=== PATIENT | female | born 1950 | race Caucasian/White ===

== ENCOUNTER 2024-08-18 21:24 | Emergency (ER) | payer MEDICARE, MEDICAID ==
[2024-08-18 23:37] LABS: BASOPHILS % 0.8 % (0.0-2.0); EOSINOPHILS % 2.3 % (0.0-5.0); HEMATOCRIT. 37.3 % (36.0-48.0); HEMOGLOBIN. 12.8 g/dL (12.0-16.0); LYMPHOCYTES % 27.3 % (20.0-50.0); MEAN PLATELET VOLUME 7.2 fl (7.4-10.4); MONOCYTES % 9.9 % (2.0-8.0); NEUTROPHILS % 59.7 % (40.0-76.0); PLATELET 228 x1000/uL (130-400); RED BLOOD CELL COUNT 4.16 mill/uL (4.2-5.4); RED CELL DISTRIBUTION WIDTH 12.8 % (11.6-14.6)
[2024-08-18 23:56] LABS: CREATININE 0.9 mg/dL (0.6-1.0); UREA NITROGEN BLOOD 21 mg/dL (9-23)
[2024-08-19] MEDS: CEFTRIAXONE SODIUM 1G VIAL IM ONE (00:18)
[2024-08-19] MEDS ORDERED: CEPH500C2 MT (00:53)
[2024-08-19 01:04] VITALS: BP 152/73; PULSE 93; RESP 16; O2SAT 100
== END 2024-08-19 02:29 | disposition home or self-care (01) ==
LOC: ER 21:24
DX: S70.11XA Contusion of right thigh, initial encounter (principal); I87.1 Compression of vein; L03.115 Cellulitis of right lower limb; Z79.899 Other long term (current) drug therapy; V89.2XXA Person injured in unspecified motor-vehicle accident, traffic, initial encounter; Y93.89 Activity, other specified; Y92.89 Other specified places as the place of occurrence of the external cause; Y99.8 Other external cause status
CPT/HCPCS: 99285; 93971; 80048; 85025; 85379; 36415; 73560; 96372; J0696

== ENCOUNTER 2024-09-05 22:56 | Inpatient (IN) | payer MEDICARE, MEDICAID ==
[~2024-09-05] VITALS: Ht 165.1 cm; Wt 75.9 kg
[~2024-09-05 22:56] MED LIST: CEPH500C2 MT
[2024-09-06 00:06] LABS: BASOPHILS % 0.7 % (0.0-2.0); EOSINOPHILS % 1.6 % (0.0-5.0); HEMATOCRIT. 39.5 % (36.0-48.0); HEMOGLOBIN. 13.4 g/dL (12.0-16.0); LYMPHOCYTES % 25.9 % (20.0-50.0); MEAN PLATELET VOLUME 7.3 fl (7.4-10.4); MONOCYTES % 8.8 % (2.0-8.0); NEUTROPHILS % 63.0 % (40.0-76.0); PLATELET 235 x1000/uL (130-400); RED BLOOD CELL COUNT 4.43 mill/uL (4.2-5.4); RED CELL DISTRIBUTION WIDTH 12.6 % (11.6-14.6)
[2024-09-06 00:13] LABS: INR 1.0
[2024-09-06 00:17] LABS: CREATININE 0.9 mg/dL (0.6-1.0)
[2024-09-06 00:18] LABS: UREA NITROGEN BLOOD 17 mg/dL (9-23)
[2024-09-06 00:19] LABS: ASPARTATE AMINOTRANSFERASE 26 IU/L (<34); TROPONIN I HIGH SENSITIVITY 4 ng/L (3.0-34)
[2024-09-06 00:20] LABS: BILIRUBIN DIRECT 0.2 mg/dL (<=3.0); BILIRUBIN TOTAL 0.8 mg/dL (0.1-1.0); PROTEIN TOTAL 6.9 g/dL (6.0-8.3)
[2024-09-06 01:00] LABS: CLARITY URINE CLEAR (CLEAR); COLOR URINE YELLOW (YELLOW); GLUCOSE URINE NEGATIVE (NEGATIVE); KETONES URINE NEGATIVE (NEGATIVE); LEUKOCYTE ESTERASE URINE 2+ (NEGATIVE); NITRITE URINE NEGATIVE (NEGATIVE); OCCULT BLOOD URINE NEGATIVE (NEGATIVE); PH URINE 6.0 (4.5-8.0); PROTEIN URINE NEGATIVE (NEGATIVE); SPECIFIC GRAVITY URINE 1.009 (1.005-1.030); UROBILINOGEN URINE 0.2 E.U./dL (0.2-1.0)
[2024-09-06 01:14] LABS: BACTERIA URINE NONE SEEN; RBC URINE NONE SEEN /hpf (0-2); SQUAMOUS EPITHELIAL CELL URINE NONE SEEN /lpf (RARE/1+)
[2024-09-06] MEDS: CEFTRIAXONE 1GM/50ML 50 ML IV NR (03:00)
[2024-09-06 04:00] VITALS: BP 140/83; PULSE 106; RESP 18; TEMP 36.4; TEMP 36.418; O2SAT 100
[2024-09-06] MEDS ORDERED: CHOL400D7 PO ×2 (05:34)
[2024-09-06] MEDS ORDERED: APIX2.5T PO (05:34)
[2024-09-06] MEDS ORDERED: PANT20TA17 PO ×2 (05:34)
[2024-09-06] MEDS ORDERED: METO-385 MT (05:34)
[2024-09-06] MEDS ORDERED: HYDR25TA MT (05:34)
[2024-09-06] MEDS ORDERED: CLOP75TA33 MT (05:34)
[2024-09-06] MEDS ORDERED: METO-385 PO (05:34)
[2024-09-06] MEDS ORDERED: SOTA80TA MT (05:34)
[2024-09-06] MEDS ORDERED: VITA250012 MT (05:34)
[2024-09-06] MEDS ORDERED: CLOP75TA33 PO (05:34)
[2024-09-06] MEDS ORDERED: APIX2.5T MT (05:34)
[2024-09-06] MEDS ORDERED: SOTA80TA PO (05:34)
[2024-09-06] MEDS ORDERED: TELM1TAB MT (05:34)
[2024-09-06] MEDS ORDERED: *PATIENT'S OWN MEDICATION STORAGE XX SCH (06:15)
[2024-09-06] MEDS ORDERED: HYDROCODONE/ACETAMINOPHEN 5/325MG TABLET PO PRN (06:30)
[2024-09-06] MEDS ORDERED: NON FORMULARY MED XX SCH (06:30)
[2024-09-06 08:00] VITALS: BP 134/83; PULSE 75; RESP 18; TEMP 36.9; O2SAT 100
[2024-09-06] MEDS: PANTOPRAZOLE 40MG DR TABLET PO SCH (10:36)
[2024-09-06] MEDS: APIXABAN 5 MG TABLET PO SCH (10:36)
[2024-09-06] MEDS: METOPROLOL SUCCINATE 50MG ER TABLET PO SCH (10:39)
[2024-09-06] MEDS: LOSARTAN 100 MG TABLET PO SCH (10:40)
[2024-09-06] MEDS: CLOPIDOGREL 75MG TABLET PO SCH (10:41)
[2024-09-06] MEDS: SOTALOL HCL 80MG TABLET PO SCH (10:41)
[2024-09-06] MEDS: HYDROCHLOROTHIAZIDE 25MG TABLET PO SCH (10:41)
[2024-09-06 12:00] VITALS: BP 126/83; PULSE 98; RESP 18; TEMP 36.8; O2SAT 98
[2024-09-06 13:30] LABS: BASOPHILS % 0.6 % (0.0-2.0); EOSINOPHILS % 1.0 % (0.0-5.0); HEMATOCRIT. 40.1 % (36.0-48.0); HEMOGLOBIN. 13.6 g/dL (12.0-16.0); LYMPHOCYTES % 24.7 % (20.0-50.0); MEAN PLATELET VOLUME 7.2 fl (7.4-10.4); MONOCYTES % 9.8 % (2.0-8.0); NEUTROPHILS % 63.9 % (40.0-76.0); PLATELET 238 x1000/uL (130-400); RED BLOOD CELL COUNT 4.49 mill/uL (4.2-5.4); RED CELL DISTRIBUTION WIDTH 12.5 % (11.6-14.6)
[2024-09-06 14:08] LABS: CREATININE 0.8 mg/dL (0.6-1.0); UREA NITROGEN BLOOD 13 mg/dL (9-23)
[2024-09-06 14:10] LABS: TROPONIN I HIGH SENSITIVITY < 4 ng/L (3.0-34)
[2024-09-06 14:47] LABS: HEPATITIS C AB NON REACTIVE (Neg) (Negative)
[2024-09-06 16:00] VITALS: BP 107/65; PULSE 63; RESP 19; TEMP 36.1; O2SAT 94
[2024-09-06 20:00] VITALS: BP 112/70; RESP 19; TEMP 36.3; O2SAT 96
[2024-09-07] VITALS: BP 121/71; PULSE 76; RESP 19; TEMP 36.2; O2SAT 97
[2024-09-07] MEDS: CEFTRIAXONE 1GM/50ML 50 ML IV SCH (03:28)
[2024-09-07 07:11] LABS: CREATININE 0.8 mg/dL (0.6-1.0); UREA NITROGEN BLOOD 16 mg/dL (9-23)
[2024-09-07 07:12] LABS: TROPONIN I HIGH SENSITIVITY < 4 ng/L (3.0-34)
[2024-09-07 08:00] VITALS: BP 127/71; PULSE 79; RESP 16; TEMP 36.4; O2SAT 100
[2024-09-07 12:00] VITALS: BP 134/73; PULSE 101; RESP 16; TEMP 36.2; O2SAT 100
[2024-09-07 16:00] VITALS: BP 142/73; PULSE 97; RESP 16; TEMP 36.6; O2SAT 100
[2024-09-07] MEDS ORDERED: NALOXONE HCL 0.4MG/ML VIAL IV PRN (16:30)
[2024-09-07 20:00] VITALS: BP 141/87; PULSE 103; RESP 18; TEMP 36.1; O2SAT 100
[2024-09-08] VITALS: BP 125/73; PULSE 89; RESP 18; TEMP 35.6; O2SAT 100
[2024-09-08 08:00] VITALS: BP 139/91; PULSE 86; RESP 18; TEMP 36.1; O2SAT 98
[2024-09-08] MEDS ORDERED: APIX5TAB MT (15:03)
[2024-09-08] MEDS ORDERED: SOTA80TA MT (15:03)
[2024-09-08] MEDS ORDERED: CLOP-31 MT (15:03)
[2024-09-08] MEDS ORDERED: METO-385 MT (15:03)
[2024-09-08] MEDS ORDERED: LOSA100T33 MT (15:03)
[2024-09-08] MEDS ORDERED: HYDR25TA MT (15:03)
[2024-09-08 16:00] VITALS: BP 141/73; PULSE 83; RESP 18; TEMP 35.9; O2SAT 100
[2024-09-08 20:00] VITALS: BP 124/77; PULSE 95; RESP 18; TEMP 36.1; O2SAT 100
[2024-09-09] VITALS: BP 114/72; PULSE 83; RESP 18; TEMP 36.2; O2SAT 100
[2024-09-09 04:00] VITALS: BP 105/63; PULSE 76; RESP 18; TEMP 35.8; O2SAT 100
[2024-09-09 08:00] VITALS: BP 110/71; PULSE 76; RESP 18; TEMP 35.7; O2SAT 100
[2024-09-09 09:31] VITALS: BP 110/71; PULSE 76; TEMP 96.2; O2SAT 100
[2024-09-09 12:00] VITALS: BP 120/81; PULSE 89; RESP 18; TEMP 36; O2SAT 98
== END 2024-09-09 12:00 | disposition home or self-care (01) | DRG 201 ==
LOC: ER 22:56 → 6WST 09-06 01:51 → EDBEDREQDT 09-06 02:27 → EDBEDREQTM 09-06 02:27 → EDBEDREQ 09-06 02:27 → ENRESERV 09-06 02:47
PROVIDERS: ADMIT Internal Medicine; ATTEND Internal Medicine
DX: I48.92 Unspecified atrial flutter (principal); I11.0 Hypertensive heart disease with heart failure; I25.110 Atherosclerotic heart disease of native coronary artery with unstable angina pectoris; I50.9 Heart failure, unspecified; Z79.01 Long term (current) use of anticoagulants; N39.0 Urinary tract infection, site not specified; I48.91 Unspecified atrial fibrillation; S80.01XA Contusion of right knee, initial encounter; S80.211A Abrasion, right knee, initial encounter; X58.XXXA Exposure to other specified factors, initial encounter; I25.2 Old myocardial infarction; Z95.0 Presence of cardiac pacemaker; Z95.5 Presence of coronary angioplasty implant and graft; Y93.89 Activity, other specified; Y92.89 Other specified places as the place of occurrence of the external cause; Y99.8 Other external cause status
CPT/HCPCS: 36415; 71045; 80048; 80076; 81003; 83880; 84484; 85025; 86705; 87340; 93005; 93306; 97161; 99291; J0696